=== PATIENT | female | born 1985 | race Two or more races ===

== ENCOUNTER 2019-05-19 15:17 | Emergency (ER) | payer SELFPAY ==
[~2019-05-19] VITALS: Ht 167.6 cm; Wt 70.3 kg
[2019-05-19 15:50] VITALS: BP 126/71
== END 2019-05-19 16:38 | disposition home or self-care (01) ==
LOC: ER 15:17
DX: O20.0 Threatened abortion (principal); Z3A.01 Less than 8 weeks gestation of pregnancy
CPT/HCPCS: 36415; 84702